=== PATIENT | female | born 1990 | race African-American/Black ===

== ENCOUNTER 2025-05-15 00:11 | Emergency (ER) | payer BC, MEDICAID, OTHER ==
[~2025-05-15] VITALS: Ht 154.9 cm; Wt 104.0 kg
[~2025-05-15 00:11] MED LIST: DOXYCYCLINE; SERTRALINE
[2025-05-15 00:12] VITALS: O2SAT 100
[2025-05-15 01:07] LABS: BASOPHILS % 1.8 % (0.0-2.0); EOSINOPHILS % 2.0 % (0.0-5.0); HEMATOCRIT. 35.7 % (36.0-48.0); HEMOGLOBIN. 11.4 g/dL (12.0-16.0); LYMPHOCYTES % 32.0 % (20.0-50.0); MEAN PLATELET VOLUME 9.7 fl (7.4-10.4); MONOCYTES % 6.1 % (2.0-8.0); NEUTROPHILS % 58.1 % (40.0-76.0); PLATELET 275 x1000/uL (130-400); RED BLOOD CELL COUNT 4.48 mill/uL (4.2-5.4); RED CELL DISTRIBUTION WIDTH 14.2 % (11.6-14.6)
[2025-05-15 01:24] LABS: HCG SCREEN NEGATIVE
[2025-05-15 01:25] LABS: CREATININE 0.7 mg/dL (0.6-1.0)
[2025-05-15 01:26] LABS: UREA NITROGEN BLOOD 8 mg/dL (9-23)
[2025-05-15 01:27] LABS: ASPARTATE AMINOTRANSFERASE 25 IU/L (<34)
[2025-05-15 01:28] LABS: BILIRUBIN DIRECT 0.1 mg/dL (<=3.0); BILIRUBIN TOTAL 0.5 mg/dL (0.1-1.0); PROTEIN TOTAL 6.9 g/dL (6.0-8.3)
[2025-05-15] MEDS: ONDANSETRON HCL 4MG/2ML INJ IV ONE (01:34)
[2025-05-15] MEDS: KETOROLAC 15MG/ML VIAL IV ONE (01:40)
[2025-05-15] MEDS: MORPHINE SULFATE 4 MG/ML INJ (FOR IV/IM USE) IV ONE (01:41)
[2025-05-15 03:51] LABS: CLARITY URINE CLOUDY (CLEAR); COLOR URINE YELLOW (YELLOW); GLUCOSE URINE NEGATIVE (NEGATIVE); KETONES URINE NEGATIVE (NEGATIVE); LEUKOCYTE ESTERASE URINE TRACE (NEGATIVE); NITRITE URINE NEGATIVE (NEGATIVE); OCCULT BLOOD URINE 3+ (NEGATIVE); PH URINE 5.5 (4.5-8.0); PROTEIN URINE 1+ (NEGATIVE); SPECIFIC GRAVITY URINE 1.026 (1.005-1.030); UROBILINOGEN URINE 1.0 E.U./dL (0.2-1.0)
[2025-05-15 04:40] LABS: SQUAMOUS EPITHELIAL CELL URINE 1+ /lpf (RARE/1+)
[2025-05-15 04:42] LABS: RBC URINE 25-50 /hpf (0-2); WBC URINE 0-2 /hpf (0-2)
[2025-05-15 04:44] LABS: BACTERIA URINE TRACE
[2025-05-15] MEDS ORDERED: ACET-2708 MT (05:10)
[2025-05-15] MEDS ORDERED: NAPR-677 MT (05:10)
[2025-05-15 05:19] VITALS: BP 109/59; PULSE 61; RESP 18; TEMP 36.8; O2SAT 98
== END 2025-05-15 05:24 | disposition home or self-care (01) ==
LOC: ER 00:11
DX: N94.6 Dysmenorrhea, unspecified (principal); Z79.1 Long term (current) use of non-steroidal anti-inflammatories (NSAID)
CPT/HCPCS: 99285; 96374; 76830; 76856; 96375; 80076; 80048; 81003; 84703; 83690; 85025; 36415; J1885; J2405; J2270